=== PATIENT | male | born 1975 | race Two or more races ===

== ENCOUNTER 2022-01-16 20:34 | Emergency (ER) | payer SELFPAY ==
[~2022-01-16] VITALS: Ht 157.5 cm; Wt 91.9 kg
--- NOTE | 2022-01-16 20:57 | PHYS DOC ---
Past Medical History Past Medical History: Diabetes-Type II, High Cholesterol Additional Past Surgical Histo: Hernia Smoking Status: Current Some Day Smoker Alcohol Use: None Drug Use: None General Adult EDM: Chief Complaint: NEURO SYMPTOMS/DEFICITS HPI: HPI: Patient is a 46 year old male who presents with complaint of left-sided facial weakness. The patient symptoms started 3 days ago and have been persistent since onset. Patient first noted ringing in his left ear the day prior to his facial droop. States that he has been having difficulty closing his left eye and has been having drooling when trying to drink fluids on the left side of his face. Noted history of diabetes mellitus type 2. No previous history of stroke. Denies any weakness in the extremities, difficulty with swallowing, loss of balance. States that the symptoms affect the entire left side of his face. Review of Systems: Review of Systems: Constitutional: Denies fever or chills. [] Eyes: Denies change in visual acuity. [] HENT: Denies nasal congestion or sore throat. [] Respiratory: Denies cough or shortness of breath. [] Cardiovascular: Denies chest pain or edema. [] GI: Denies abdominal pain, nausea, vomiting, bloody stools or diarrhea. [] : Denies dysuria. [] Musculoskeletal: Denies back pain or joint pain. [] Integument: Denies rash. [] Neurologic: Facial droop, denies extremity weakness, dizziness, or difficulty with balance. [] Endocrine: Denies polyuria or polydipsia. [] Heart Score: C/O Chest Pain: No Risk Factors: Risk Factors: DM, Current or recent (<one month) smoker, HTN, HLP, family history of CAD, obesity. Risk Scores: Score 0 - 3: 2.5% MACE over next 6 weeks - Discharge Home Score 4 - 6: 20.3% MACE over next 6 weeks - Admit for Clinical Observation Score 7 - 10: 72.7% MACE over next 6 weeks - Early Invasive Strategies Current Medications: Current Medications Medications (Trade) Dose Ordered Sig/Jennifer Start Time Stop Time Status Last Admin Dose Admin Sodium Chloride 1,000 ml @ 1,000 mls/hr Q1H 01/16/22 21:00 01/16/22 21:59 UNV Allergies: Allergies: No known drug allergies Physical Exam: PE: Constitutional: Alert, afebrile, no acute distress. [] HENT: Normocephalic, atraumatic, bilateral external ears normal, oropharynx moist, no oral exudates, nose normal. [] Eyes: PERRLA, EOMI, conjunctiva normal, no discharge. [] Neck: Normal range of motion, no tenderness, supple, no stridor. [] Cardiovascular:Heart rate regular rhythm, no murmur [] Lungs & Thorax: Bilateral breath sounds clear to auscultation [] Abdomen: Bowel sounds normal, soft, no tenderness, no masses, no pulsatile masses. [] Skin: Warm, dry, no erythema, no rash. [] Back: No tenderness, no CVA tenderness. [] Extremities: No tenderness, no cyanosis, no clubbing, ROM intact, no edema. [] Neurologic: Alert and oriented X 3, left-sided facial droop including forehead, normal sensory function, normal gait. [] Current Patient Data: Labs: Laboratory Tests Test 01/16/22 20:50 White Blood Count 9.5 x10^3/uL Red Blood Count 4.92 x10^6/uL Hemoglobin 14.0 g/dL Hematocrit 43.3 % Mean Corpuscular Volume 88 fL Mean Corpuscular Hemoglobin 28 pg Mean Corpuscular Hemoglobin Concent 32 g/dL Red Cell Distribution Width 12.8 % Platelet Count 225 x10^3/uL Neutrophils (%) (Auto) 53 % Lymphocytes (%) (Auto) 31 % Monocytes (%) (Auto) 5 % Eosinophils (%) (Auto) 9 % Basophils (%) (Auto) 1 % Neutrophils # (Auto) 5.1 x10^3/uL Lymphocytes # (Auto) 2.9 x10^3/uL Monocytes # (Auto) 0.5 x10^3/uL Eosinophils # (Auto) 0.9 x10^3/uL Basophils # (Auto) 0.1 x10^3/uL Sodium Level 134 mmol/L Potassium Level 3.5 mmol/L Chloride Level 99 mmol/L Carbon Dioxide Level 27 mmol/L Anion Gap 8 Blood Urea Nitrogen 11 mg/dL Creatinine 0.8 mg/dL Estimated GFR (Cockcroft-Gault) 105.0 BUN/Creatinine Ratio 14 Glucose Level 332 mg/dL Calcium Level 8.7 mg/dL Total Bilirubin 0.4 mg/dL Aspartate Amino Transf (AST/SGOT) 17 U/L Alanine Aminotransferase (ALT/SGPT) 48 U/L Alkaline Phosphatase 146 U/L Total Protein 7.3 g/dL Albumin 3.6 g/dL Albumin/Globulin Ratio 1.0 Current Medications Medications (Trade) Dose Ordered Sig/Jennifer Route PRN Reason Start Time Stop Time Status Last Admin Dose Admin Sodium Chloride 1,000 ml @ 1,000 mls/hr Q1H IV 01/16/22 21:00 01/16/22 21:59 DC 01/16/22 21:04 Vital Signs: Vital Signs Date Time Temp Pulse Resp B/P (MAP) Pulse Ox O2 Delivery O2 Flow Rate FiO2 01/16/22 20:38 99.0 83 20 164/82 (109) 98 Room Air 99.0 Vital Signs Date Time Temp Pulse Resp B/P (MAP) Pulse Ox O2 Delivery O2 Flow Rate FiO2 01/16/22 20:38 99.0 83 20 164/82 (109) 98 Room Air 99.0 EKG: EKG: Interpreted by me: Heart rate 69, sinus rhythm, leftward axis, no acute ST/T wave abnormalities present [] Radiology/Procedures: Radiology/Procedures: [facility] [address] [place], [place] [id number] IMAGING REPORT Signed PATIENT: ROSANNA PELLETIERUNT: [id number] : 1975 LOCATION: ER AGE: 46 SEX: M EXAM STATUS: REG ER ORD. PHYSICIAN: DANIELA MCGRATH MD REASON: Left facial droop for 3 days PROCEDURE: CT HEAD WO CONTRAST INDICATION: Reason: Left facial droop for 3 days / Spl. Instructions: / History: COMPARISON: None. TECHNIQUE: Axial CT images obtained through the head without intravenous contrast. One or more of the following individualized dose reduction techniques were utilized for this examination: 1. Automated exposure control; 2. Adjustment of the mA and/or kV according to patient size; 3. Use of iterative reconstruction technique. FINDINGS: No intracranial hemorrhage. No significant midline shift. Ventricles and sulci are unremarkable. No acute osseous abnormality. There is either a calcification or a small high density foreign body in the scalp frontally. IMPRESSION: * No acute intracranial hemorrhage. Electronically signed by: Mauricio Wiley MD (01/16/2022 10:42 PM) [id number] DICTATED and SIGNED BY: MAURICIO WILEY MD DATE: 01/16/22 [id number] [] Course & Med Decision Making: Course & Med Decision Making Pertinent Labs and Imaging studies reviewed. (See chart for details) The patient's examination and findings appear consistent with Colon's palsy. Patient underwent blood work and CT imaging in the emergency department. The CT head showed no acute findings. Patient noted to have elevated blood sugar on metabolic panel. The patient's condition at this time is stable. Patient will be treated with prednisone and Valacyclovir for treatment of Colon's palsy. Referred to Dr. Nicole of neurology for further outpatient evaluation. Advised to continue close monitoring of blood sugars as prednisone can cause a rise in blood sugar levels. Recommend return to the emergency department for any worsening symptoms. Patient voiced understanding and in agreement with treatment plan. [] Dragon Disclaimer: Dragon Disclaimer: This electronic medical record was generated, in whole or in part, using a voice recognition dictation system. Departure Departure Impression: Primary Impression: Colon's palsy Additional Impression: Diabetes mellitus Qualified Codes: E11.65 - Type 2 diabetes mellitus with hyperglycemia Disposition: HOME / SELF CARE / HOMELESS Condition: STABLE Referrals: KEVEN DUVAL MD Patient Instructions: Colon's Palsy Additional Instructions: Follow-up with Dr. Nicole of neurology in 1 week for reevaluation. Return to the emergency department for any worsening symptoms. Scripts Valacyclovir Hcl (VALACYCLOVIR) 1,000 Mg Tablet 1 TAB PO TID, #21 TAB Prov: DANIELA MCGRATH MD 01/16/22 Prednisone (PREDNISONE) 20 Mg Tablet 60 MG PO DAILY for 7 Days, #21 TAB Prov: DANIELA MCGRATH MD 01/16/22 DANIELA MCGRATH MD Jan 16, 2022 20:57
[2022-01-16] MEDS ORDERED: IV NORMAL SALINE 1000ML BAG 1,000 ML IV SCH (21:00)
[2022-01-16 21:01] LABS: BASO # 0.1 x10^3/uL (0.0-0.2); BASO % 1 % (0-3); EOS # 0.9 x10^3/uL (0.0-0.7); EOS % 9 % (0-3); HEMATOCRIT 43.3 % (39.0-53.0); LYMPH # 2.9 x10^3/uL (1.0-4.8); LYMPH % 31 % (24-48); MEAN CORPUSCULAR HEMOGLOBIN 28 pg (25-35); MEAN CORPUSCULAR HGB CONC 32 g/dL (31-37); MEAN CORPUSCULAR VOLUME 88 fL (79-100); MONO # 0.5 x10^3/uL (0.0-1.1); MONO % 5 % (0-9); NEUT # 5.1 x10^3/uL (1.8-7.7); NEUT % 53 % (31-73); PLATELET COUNT 225 x10^3/uL (140-400); RED BLOOD COUNT 4.92 x10^6/uL (4.30-5.70); RED CELL DISTRIBUTION WIDTH 12.8 % (11.5-14.5); WHITE BLOOD COUNT 9.5 x10^3/uL (4.0-11.0)
[2022-01-16 21:09] LABS: CALCIUM 8.7 mg/dL (8.5-10.1); CREATININE 0.8 mg/dL (0.7-1.3); POTASSIUM 3.5 mmol/L (3.5-5.1)
[2022-01-16 21:15] LABS: ALBUMIN 3.6 g/dL (3.4-5.0); TOTAL BILIRUBIN 0.4 mg/dL (0.2-1.0); TOTAL PROTEIN 7.3 g/dL (6.4-8.2)
--- NOTE | 2022-01-16 22:44 | RAD ---
INDICATION: Reason: Left facial droop for 3 days / Spl. Instructions: / History: COMPARISON: None. TECHNIQUE: Axial CT images obtained through the head without intravenous contrast. One or more of the following individualized dose reduction techniques were utilized for this examinat ion: 1. Automated exposure control; 2. Adjustment of the mA and/or kV according to patient size; 3 . Use of iterative reconstruction technique. FINDINGS: No intracranial hemorrhage. No significant midline shift. Ventricles and sulci are unremarkable. No acute osseous abnormality. There is either a calcification or a small high density foreign body in the scalp frontally. IMPRESSION: * No acute intracranial hemorrhage. Electronically signed by: Ike Dale MD (01/16/2022 10:42 PM) [id number]
[2022-01-16] MEDS ORDERED: PRED20TA PO (23:07)
[2022-01-16] MEDS ORDERED: VALA10008 PO (23:07)
[2022-01-16 23:39] VITALS: BP 133/74
--- NOTE | 2022-01-17 06:10 | EKG ---
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
== END 2022-01-16 23:43 | disposition home or self-care (01) ==
LOC: ER 20:34
DX: G51.0 Bell's palsy (principal); E11.65 Type 2 diabetes mellitus with hyperglycemia; E78.00 Pure hypercholesterolemia, unspecified; F17.200 Nicotine dependence, unspecified, uncomplicated
CPT/HCPCS: 36415; 70450; 80053; 85025; 93005; 96360; 99285; J7030